=== PATIENT | male | born 1945 | race Caucasian/White ===

== ENCOUNTER 2020-07-09 19:44 | Emergency (ER) | payer OTHER ==
[~2020-07-09] VITALS: Ht 162.6 cm; Wt 79.4 kg
--- NOTE | 2020-07-09 19:48 | NUR ---
Placed in room 08 . Placed on journeyman mechanic, blood pressure machine and pulse oximeter. To gown for exam. Side rails up.
[2020-07-09 19:49] VITALS: BP_SYST 103
--- NOTE | 2020-07-09 20:00 | NUR ---
PT PRESENTS WITH BLS AMBULANCE FOR LOW BP AND FALLING TWICE AT HOME. PT DENIES KO. PER PT'S BP WAS 78/50 AND TOOK BP MEDICATION AT 1630. PT ADMITS TO HAVING 4 ALCOHOLIC BEVERAGES THIS EVENING. HX OF PARKINSONS, HTN, HLD, HEART DISEASE. AAOX4, V/S STABLE
[2020-07-09 20:36] LABS: BASOPHILS # (AUTO) 0.1 K/uL (0.0-0.2); BASOPHILS % (AUTO) 0.9 % (0.0-2.0); EOSINOPHILS # (AUTO) 0.2 K/uL (0.0-0.4); EOSINOPHILS % (AUTO) 2.5 % (0.0-4.0); HEMATOCRIT 34.2 % (36-54); HEMOGLOBIN 11.4 g/dL (14.0-18.0); LYMPHOCYTES # (AUTO) 1.6 K/uL (1.0-5.5); LYMPHOCYTES % (AUTO) 23.5 % (20.5-51.5); MEAN CORPUSCULAR HEMOGLOBIN 32 pg (27-31); MEAN CORPUSCULAR HGB CONC 33 % (32-36); MEAN CORPUSCULAR VOLUME 95 fL (79.0-98.0); MONOCYTES # (AUTO) 0.6 K/uL (0.0-1.0); MONOCYTES % (AUTO) 8.5 % (1.7-9.3); NEUTROPHILS # (AUTO) 4.4 K/uL (1.8-7.7); NEUTROPHILS % (AUTO) 64.6 % (40.0-70.0); PLATELET COUNT (AUTO) 120 K/uL (130-430); RED CELL DISTRIBUTION WIDTH 14.3 % (9.0-15.0); WHITE BLOOD COUNT (AUTO) 6.8 K/uL (4.8-10.8)
[2020-07-09] MEDS ORDERED: ATOR-1 PO (20:37)
[2020-07-09] MEDS ORDERED: CARB1TAB21 PO (20:37)
[2020-07-09] MEDS ORDERED: IRBE300T40 PO (20:37)
[2020-07-09] MEDS ORDERED: HYG25 PO (20:37)
[2020-07-09] MEDS ORDERED: COR25 PO (20:37)
[2020-07-09 20:40] LABS: ANION GAP 9 (5-15); CALCIUM 8.2 mg/dL (8.4-11.0); CHLORIDE 93 mmol/L (98-107); CREATININE 0.95 mg/dL (0.55-1.30); GLUCOSE 135 mg/dL (70-99); SODIUM SERUM 129 mmol/L (136-145); UREA NITROGEN, BLOOD 18 mg/dL (8-21)
--- NOTE | 2020-07-09 20:48 | NUR ---
Critical Result NA 129, Potassium 2.8. Dr. Acevedo notified
[2020-07-09 20:49] LABS: POTASSIUM 2.8 mmol/L (3.5-5.1)
[2020-07-09 20:51] LABS: ALANINE AMINOTRANSFERASE 10 U/L (12-78); ALBUMIN 3.2 g/dL (3.4-4.8); ASPARTATE AMINOTRANSFERASE 31 U/L (10-37); TOTAL BILIRUBIN 0.6 mg/dL (0.0-1.0)
[2020-07-09 20:52] LABS: ALCOHOL, BLOOD 206 mg/dL (<10)
[2020-07-09] MEDS ORDERED: NACL 0.9% 500 ML IV ONE (21:00)
--- NOTE | 2020-07-09 21:01 | NUR ---
ER at bedside examining patient.
[2020-07-09 21:11] LABS: INR 1.1 (0.80-1.20); PROTHROMBIN TIME 10.9 SECS (9.5-12.5)
[2020-07-09] MEDS ORDERED: NACL 0.9% 1,000 ML IV ONE (21:15)
[2020-07-09] MEDS ORDERED: POTASSIUM CHLORIDE 20 MEQ/PKT PACKET PO ONE (21:45)
[2020-07-09 22:11] LABS: BILIRUBIN,URINE NEGATIVE (NEGATIVE); BLOOD, URINE NEGATIVE (NEGATIVE); CLARITY/URINE CLEAR (CLEAR); COLOR,URINE YELLOW (YELLOW); GLUCOSE,URINE NEGATIVE (NEGATIVE); KETONES,URINE TRACE (NEGATIVE); LEUKOCYTE ESTERASE ,URINE NEGATIVE (NEGATIVE); NITRITE, URINE NEGATIVE (NEGATIVE); PH,URINE 5.5 (5.0-8.0); PROTEIN URINE NEGATIVE (NEGATIVE)
--- NOTE | 2020-07-09 22:14 | NUR ---
PT GIVEN PO POTASSIUM DRINK, TOLERATED WELL
[2020-07-09 22:57] VITALS: BP_SYST 112
--- NOTE | 2020-07-09 22:58 | NUR ---
Patient does not wish to proceed with medical care recommended by Dr Acevedo . Patient given information related to possible complications, up to and including , which could occur as a result of leaving hospital at this time. Patient verbalizes understanding of risks involved leaving against medical advice. Patient has signed AMA form.
== END 2020-07-09 22:57 | disposition left against medical advice (07) ==
LOC: SED 19:44
DX: I95.9 Hypotension, unspecified (principal); E87.1 Hypo-osmolality and hyponatremia; E87.6 Hypokalemia; F10.129 Alcohol abuse with intoxication, unspecified; E11.9 Type 2 diabetes mellitus without complications; Z86.73 Personal history of transient ischemic attack (TIA), and cerebral infarction without residual deficits; Z79.899 Other long term (current) drug therapy
CPT/HCPCS: 36415; 71045; 80053; 81003; 83605; 84484; 85025; 85379; 85610; 93005; 96360; 99291; G0482; J7030

== ENCOUNTER 2021-05-26 18:53 | Observation (INO) | payer OTHER, SELFPAY ==
[~2021-05-26] VITALS: Ht 172.7 cm; Wt 78.9 kg
[~2021-05-26 18:53] MED LIST: ATOR-1 PO; CARB1TAB21 PO; COR25 PO; HYG25 PO; IRBE300T40 PO
[2021-05-26 19:10] VITALS: BP_SYST 116
[2021-05-26 19:57] LABS: BASOPHILS # (AUTO) 0.1 K/uL (0.0-0.2); BASOPHILS % (AUTO) 0.6 % (0.0-2.0); EOSINOPHILS # (AUTO) 0.1 K/uL (0.0-0.4); EOSINOPHILS % (AUTO) 1.5 % (0.0-4.0); HEMATOCRIT 31.3 % (36-54); HEMOGLOBIN 10.6 g/dL (14.0-18.0); LYMPHOCYTES # (AUTO) 1.3 K/uL (1.0-5.5); MEAN CORPUSCULAR HEMOGLOBIN 31 pg (27-31); MEAN CORPUSCULAR HGB CONC 34 % (32-36); MEAN CORPUSCULAR VOLUME 93 fL (79.0-98.0); MONOCYTES # (AUTO) 0.6 K/uL (0.0-1.0); MONOCYTES % (AUTO) 7.8 % (1.7-9.3); NEUTROPHILS % (AUTO) 74.1 % (40.0-70.0); PLATELET COUNT (AUTO) 180 K/uL (130-430); RED BLOOD CELL COUNT(AUTO) 3.37 MIL/uL (4.2-6.2); RED CELL DISTRIBUTION WIDTH 14.8 % (9.0-15.0); WHITE BLOOD COUNT (AUTO) 8.1 K/uL (4.8-10.8)
[2021-05-26 20:26] LABS: ANION GAP 10 (5-15); CALCIUM 8.9 mg/dL (8.4-11.0); CHLORIDE 88 mmol/L (98-107); CREATININE 1.06 mg/dL (0.55-1.30); GLUCOSE 108 mg/dL (70-99); SODIUM SERUM 124 mmol/L (136-145); UREA NITROGEN, BLOOD 16 mg/dL (8-21)
[2021-05-26 20:31] LABS: ALANINE AMINOTRANSFERASE 10 U/L (12-78); ALBUMIN 3.3 g/dL (3.4-4.8); ASPARTATE AMINOTRANSFERASE 25 U/L (10-37); TOTAL BILIRUBIN 1.1 mg/dL (0.0-1.0)
[2021-05-26 20:33] LABS: POTASSIUM 2.7 mmol/L (3.5-5.1)
[2021-05-26] MEDS ORDERED: KCL 20 mEq in 100 mL (PREMIX) 100 ML IV ONE (20:45)
[2021-05-26] MEDS ORDERED: POTASSIUM CHLORIDE 20 MEQ TAB.PRT.SR PO ONE (20:45)
[2021-05-26 21:27] LABS: BILIRUBIN,URINE NEGATIVE (NEGATIVE); BLOOD, URINE NEGATIVE (NEGATIVE); CLARITY/URINE CLEAR (CLEAR); COLOR,URINE YELLOW (YELLOW); GLUCOSE,URINE NEGATIVE (NEGATIVE); KETONES,URINE NEGATIVE (NEGATIVE); LEUKOCYTE ESTERASE ,URINE NEGATIVE (NEGATIVE); NITRITE, URINE NEGATIVE (NEGATIVE); PROTEIN URINE NEGATIVE (NEGATIVE)
[2021-05-26] MEDS ORDERED: IOHEXOL 350 mgI/mL, 150 ML INFUS..BTL IV ONE (21:27)
[2021-05-26] MEDS ORDERED: HYDR-3610 PO (21:53)
[2021-05-26] MEDS ORDERED: HYG25 PO (21:53)
[2021-05-26] MEDS ORDERED: SACU1TAB7 PO (21:53)
[2021-05-26] MEDS ORDERED: NACL 0.9% 1,000 ML IV ONE (22:30)
[2021-05-26 23:04] LABS: INR 1.1 (0.80-1.20); PROTHROMBIN TIME 11.6 SECS (9.5-12.5)
[2021-05-27] VITALS (7 sets, daily range): BP systolic 88–134
[2021-05-27] MEDS ORDERED: HYDROcodone/ACETAMIN 5-325 MG TAB (NORCO/ VICODIN) PO PRN
[2021-05-27] MEDS ORDERED: MORPHINE 4 MG INJ. 4 MG/ML VIAL IVP PRN
[2021-05-27] MEDS ORDERED: NALOXONE HCL 0.4 MG/ML AMP (NARCAN) IVP PRN
[2021-05-27] MEDS ORDERED: ACETAMINOPHEN 325 MG TABLET PO PRN
[2021-05-27] MEDS ORDERED: ALBUTEROL SULFATE 0.083% 2.5 MG/3 ML VIAL.NEB INH PRN
[2021-05-27 07:01] LABS: BASOPHILS # (AUTO) 0.1 K/uL (0.0-0.2); BASOPHILS % (AUTO) 0.7 % (0.0-2.0); EOSINOPHILS # (AUTO) 0.1 K/uL (0.0-0.4); EOSINOPHILS % (AUTO) 1.4 % (0.0-4.0); HEMATOCRIT 30.2 % (36-54); HEMOGLOBIN 10.5 g/dL (14.0-18.0); LYMPHOCYTES # (AUTO) 1.1 K/uL (1.0-5.5); LYMPHOCYTES % (AUTO) 14.2 % (20.5-51.5); MEAN CORPUSCULAR HEMOGLOBIN 32 pg (27-31); MEAN CORPUSCULAR HGB CONC 35 % (32-36); MEAN CORPUSCULAR VOLUME 92 fL (79.0-98.0); MONOCYTES # (AUTO) 0.7 K/uL (0.0-1.0); MONOCYTES % (AUTO) 9.7 % (1.7-9.3); NEUTROPHILS # (AUTO) 5.5 K/uL (1.8-7.7); PLATELET COUNT (AUTO) 172 K/uL (130-430); RED BLOOD CELL COUNT(AUTO) 3.27 MIL/uL (4.2-6.2); RED CELL DISTRIBUTION WIDTH 14.7 % (9.0-15.0); WHITE BLOOD COUNT (AUTO) 7.4 K/uL (4.8-10.8)
[2021-05-27] MEDS ORDERED: CARBIDOPA/LEVODOPA 25/100 MG TABLET PO SCH ×3 (09:00→15:00)
[2021-05-27 09:03] LABS: CHLORIDE 91 mmol/L (98-107); POTASSIUM 3.3 mmol/L (3.5-5.1); SODIUM SERUM 127 mmol/L (136-145)
[2021-05-27 09:04] LABS: ALANINE AMINOTRANSFERASE 9 U/L (12-78); ANION GAP 9 (5-15); ASPARTATE AMINOTRANSFERASE 21 U/L (10-37); CALCIUM 8.4 mg/dL (8.4-11.0); CREATININE 0.88 mg/dL (0.55-1.30); GLUCOSE 103 mg/dL (70-99); TOTAL BILIRUBIN 1.4 mg/dL (0.0-1.0); UREA NITROGEN, BLOOD 16 mg/dL (8-21)
[2021-05-27] MEDS ORDERED: POTASSIUM CHLORIDE 20 MEQ TAB.PRT.SR PO ONE (09:15)
[2021-05-27] MEDS ORDERED: CARVEDILOL 25 MG TABLET (COREG) ONE (10:41)
[2021-05-27] MEDS ORDERED: CARBIDOPA/LEVODOPA 25/100 MG TABLET PO ONE (11:30)
[2021-05-27] MEDS ORDERED: HYDROcodone/ACETAMIN 7.5-325 MG TAB PO PRN (15:15)
[2021-05-27] MEDS ORDERED: CARVEDILOL 25 MG TABLET (COREG) PO SCH (18:00)
[2021-05-27] MEDS ORDERED: SACUBITRIL/VALSARTAN 24 MG-26 MG 1 TABLET PO SCH (21:00)
== END 2021-05-27 19:50 | disposition home or self-care (01) ==
LOC: SED 18:53 → INTOOBSV 22:23 → STU 22:23
PROVIDERS: ADMIT Internal Medicine Hospice and Palliative Medicine; ATTEND Internal Medicine Hospice and Palliative Medicine
DX: R55 Syncope and collapse (principal); Z20.822 Contact with and (suspected) exposure to COVID-19; E87.6 Hypokalemia; E87.1 Hypo-osmolality and hyponatremia; D64.9 Anemia, unspecified; E46 Unspecified protein-calorie malnutrition; E88.09 Other disorders of plasma-protein metabolism, not elsewhere classified; I25.10 Atherosclerotic heart disease of native coronary artery without angina pectoris; I48.91 Unspecified atrial fibrillation; I11.0 Hypertensive heart disease with heart failure; I50.9 Heart failure, unspecified; E11.9 Type 2 diabetes mellitus without complications; G20 Parkinson's disease; F02.80 Dementia in other diseases classified elsewhere, unspecified severity, without behavioral disturbance, psychotic disturbance, mood disturbance, and anxiety; T50.2X5A Adverse effect of carbonic-anhydrase inhibitors, benzothiadiazides and other diuretics, initial encounter; Z95.1 Presence of aortocoronary bypass graft; Z79.899 Other long term (current) drug therapy; Z87.891 Personal history of nicotine dependence
CPT/HCPCS: 36415 ×2; 70450; 71045; 71275; 76376; 80053 ×2; 81003; 82962; 83735; 83880; 84484 ×2; 85025 ×2; 85379; 85610; 87426; 93005; 93306; 96365; 96366; 99285; G0378; J3480; Q9967

== ENCOUNTER 2022-02-14 09:40 | Inpatient (IN) | payer OTHER ==
[~2022-02-14] VITALS: Ht 172.7 cm; Wt 77.1 kg
[~2022-02-14 09:40] MED LIST changes: -ATOR-1 PO
[2022-02-14 09:44] VITALS: BP_SYST 128
--- NOTE | 2022-02-14 09:44 | NUR ---
Patient to ER bed 2 for evaluation. Side rails up. Report given to Jeramie CHOWDHURY.
--- NOTE | 2022-02-14 10:32 | NUR ---
In ER bed 2 States that he has been falling alot at home Denies Trauma
[2022-02-14 10:44] LABS: BASOPHILS % (AUTO) 0.2 % (0.0-2.0); EOSINOPHILS % (AUTO) 0.2 % (0.0-4.0); HEMATOCRIT 25.8 % (36-54); HEMOGLOBIN 9.2 g/dL (14.0-18.0); LYMPHOCYTES # (AUTO) 0.4 K/uL (1.0-5.5); MEAN CORPUSCULAR HEMOGLOBIN 31 pg (27-31); MEAN CORPUSCULAR HGB CONC 36 % (32-36); MEAN CORPUSCULAR VOLUME 87 fL (79.0-98.0); MONOCYTES # (AUTO) 0.6 K/uL (0.0-1.0); MONOCYTES % (AUTO) 10.3 % (1.7-9.3); NEUTROPHILS # (AUTO) 5.1 K/uL (1.8-7.7); NEUTROPHILS % (AUTO) 83.3 % (40.0-70.0); PLATELET COUNT (AUTO) 124 K/uL (130-430); RED BLOOD CELL COUNT(AUTO) 2.96 MIL/uL (4.2-6.2); RED CELL DISTRIBUTION WIDTH 14.8 % (9.0-15.0); WHITE BLOOD COUNT (AUTO) 6.2 K/uL (4.8-10.8)
[2022-02-14 11:01] LABS: ANION GAP 9 (5-15); CALCIUM 8.4 mg/dL (8.4-11.0); CREATININE 0.92 mg/dL (0.55-1.30); GLUCOSE 106 mg/dL (70-99); UREA NITROGEN, BLOOD 21 mg/dL (8-21)
[2022-02-14 11:09] LABS: ALBUMIN 3.5 g/dL (3.4-4.8); ASPARTATE AMINOTRANSFERASE 31 U/L (10-37); TOTAL BILIRUBIN 2.7 mg/dL (0.0-1.0)
[2022-02-14 11:12] LABS: POTASSIUM 2.5 mmol/L (3.5-5.1); SODIUM SERUM 114 mmol/L (136-145)
[2022-02-14 11:13] LABS: CHLORIDE 76 mmol/L (98-107)
[2022-02-14] MEDS ORDERED: NACL 0.9% 1,000 ML IV ONE (11:30)
[2022-02-14] MEDS ORDERED: KCL 40 mEq in 100 mL (PREMIX) 100 ML IV ONE (11:30)
[2022-02-14] MEDS ORDERED: POTASSIUM CHLORIDE 20 MEQ TAB.PRT.SR PO ONE (11:30)
[2022-02-14 11:38] LABS: ALANINE AMINOTRANSFERASE 12 U/L (12-78)
[2022-02-14] MEDS: POTASSIUM CHLORIDE 20 mEq in 100 mL (PREMIX) 100 ML x 2 doses IV SCH ×2 (11:41→13:45)
[2022-02-14] MEDS ORDERED: TAMS-11 PO (12:05)
[2022-02-14] MEDS ORDERED: LIP80 PO (12:17)
--- NOTE | 2022-02-14 12:53 | NUR ---
Stable. Admitted. All results reviewed by MD. Has spoken to primary. Awaiting bed on floor.
[2022-02-14 13:23] LABS: ALCOHOL, BLOOD < 3 mg/dL (<10)
[2022-02-14] MEDS ORDERED: D5NS 1,000 ML IV SCH ×2 (13:45→17:45)
[2022-02-14] MEDS ORDERED: ACETAMINOPHEN 325 MG TABLET PO PRN ×2 (13:45→14:00)
[2022-02-14] MEDS ORDERED: HYDROcodone/ACETAMIN 5-325 MG TAB (NORCO/ VICODIN) PO PRN (13:45)
[2022-02-14] MEDS ORDERED: HYDROcodone/ACETAMIN 10-325 MG TAB PO PRN (13:45)
[2022-02-14] MEDS ORDERED: NALOXONE HCL 0.4 MG/ML AMP (NARCAN) IVP PRN ×2 (13:45)
[2022-02-14] MEDS ORDERED: ONDANSETRON HCL 4 MG/2 ML VIAL IVP PRN (13:45)
[2022-02-14] MEDS ORDERED: LORazepam 2 MG/ML VIAL IVP PRN (13:45)
[2022-02-14] MEDS ORDERED: ATORVASTATIN 20 MG TABLET PO ONE (14:00)
[2022-02-14 14:16] LABS: BILIRUBIN,URINE NEGATIVE (NEGATIVE); BLOOD, URINE NEGATIVE (NEGATIVE); CLARITY/URINE CLEAR (CLEAR); COLOR,URINE YELLOW (YELLOW); GLUCOSE,URINE TRACE (NEGATIVE); KETONES,URINE NEGATIVE (NEGATIVE); LEUKOCYTE ESTERASE ,URINE NEGATIVE (NEGATIVE); NITRITE, URINE NEGATIVE (NEGATIVE); PROTEIN URINE NEGATIVE (NEGATIVE)
[2022-02-14] MEDS ORDERED: CHLORTHALIDONE 25 MG TABLET (HYGROTON) PO ONE (15:00)
[2022-02-14] MEDS ORDERED: LOSARTAN POTASSIUM 50 MG TABLET (COZAAR) PO ONE (15:00)
[2022-02-14] MEDS: CARBIDOPA/LEVODOPA 25/100 MG TABLET PO SCH ×2 (15:00→23:54)
[2022-02-14 16:00] LABS: ANION GAP 6 (5-15); CALCIUM 7.6 mg/dL (8.4-11.0); CREATININE 0.74 mg/dL (0.55-1.30); GLUCOSE 92 mg/dL (70-99); POTASSIUM 3.3 mmol/L (3.5-5.1); UREA NITROGEN, BLOOD 19 mg/dL (8-21)
[2022-02-14 16:20] LABS: CHLORIDE 80 mmol/L (98-107); SODIUM SERUM 113 mmol/L (136-145)
[2022-02-14 17:20] VITALS: BP_SYST 133
--- NOTE | 2022-02-14 17:20 | NUR ---
ADMISSION NOTE Received patient from ER via gurney from Luciano CHOWDHURY. Patient admitted with diagnosis of syncope/a-fib. Patient is awake, alert, oriented X 4. Patient oriented to hospital room, call light, toileting, pain management and safety-teach back done. Personal belongings checked and Belongings List documented. Call light within reach.
--- NOTE | 2022-02-14 17:25 | NUR ---
Stable. VSS. Repeat lab results reported to Primary. Orders taken Has been admitted. Report to floor. Ambulated to . Placed in bed. Nurse aware.
--- NOTE | 2022-02-14 17:32 | NUR ---
CONSULTATION PAGED REASON FOR CONSULTATION:SYNCOPE/ AFIB WAS CONSULT [place] PERSON WHO WAS NOTIFIED:NATHALIE CONSULTING PHYSICIAN: AUTOMOTIVE SALES PROFESSIONAL SPECIALTY:CARDIO AUTOMOTIVE SALES PROFESSIONAL PHONE NUMBER:[phone] REQUESTING PHYSICIAN:JOSIAH MARX
[2022-02-14] MEDS: CARVEDILOL 25 MG TABLET (COREG) PO SCH (17:52)
[2022-02-14] MEDS: TAMSULOSIN HCL 0.4 MG CAP PO SCH (17:52)
--- NOTE | 2022-02-14 19:18 | NUR ---
Closing Note Patient is laying in bed with eyes closed. No apparent distress noted. Patient appears calm and resting. Call light within reach. Safety and fall precautions in place. All needs met. Will endorse care to retail shift leader RN.
[2022-02-14 20:00] VITALS: BP_SYST 156
--- NOTE | 2022-02-14 20:03 | NUR ---
PM OPENING NURSES NOTING HAND-OFF REPORT RECEIVED FROM AXEL/AND ACCOMPANYING NURSE. REPORTED: RECEIVED FROM HOME WITH C/O DIZZINESS AND FALL WITH DX OF AFIB/SYNCOPE. POOF HISTORIAN WITH HX OF HTN, CHF, BPH, AFIB, PARKINSON. PT STATED I WANT "FULL CODE". NKDA. STANDARD PRECAUTIONS. A/OX4 GREENLANDIC SPEAKING. ON BEDREST. ROOM AIR SAT 94% 2 GM NA DIET. LT AC 20 GAD5 NS @100 ML/H. LAST STOOL 02/14/22. SKIN WITH L/R BUTTOCK MOISTURE ASSOCIATED SKIN DENUDED. LEFT LEG EDEMA NON PITTING.PRESENT K @ 3.3 40 IV AND 40 P.O K GIVEN IN ER. VENOUS DOPPLER R/O DVT NEGATIVE. CT HEAD NO ACUTE CHANGES, CXR NO CHANGES IN CARDIOMEGALY. ON TELE PRESENTLY HR 76WITH PVC AND BBB. PT RESTING WITH EYES CLOSED. EVEN NON-LABORED BREATHING AUDIBLE. ALLOW TO REST. REPORTED A BIT IRRITATED AFTER ANSWERING THE MANY ADMISSION QUESTIONS. MONITOR AND ASSIST WITH MEDS ORDERED AND COMFORT MEASURES. BED IN LOWEST POSITION AND CALL LIGHT WITHIN EASY REACH. BED ALARM ON.
[2022-02-14 20:40] LABS: CALCIUM 7.9 mg/dL (8.4-11.0); CREATININE 0.69 mg/dL (0.55-1.30); GLUCOSE 139 mg/dL (70-99); POTASSIUM 3.1 mmol/L (3.5-5.1); UREA NITROGEN, BLOOD 19 mg/dL (8-21)
--- NOTE | 2022-02-14 20:48 | NUR ---
DOCTOR GUY PHONED FOR LATEST SODIUM RESULTS WHICH ARE STILL PENDING. WILL RETURN CALL WHEN RESULTS READY. .
[2022-02-14 20:51] LABS: ANION GAP 9 (5-15)
[2022-02-14 20:57] LABS: CHLORIDE 77 mmol/L (98-107); SODIUM SERUM 113 mmol/L (136-145)
--- NOTE | 2022-02-14 21:05 | NUR ---
CRITICAL LAB RESULTS PHONED TO [facility] NA 113 CL 77. NEW ORDERS OBTAINED. SERUM OSMOLARITY, URINE OSMOLARITY, TSH, CORTISOL IN A.M. 0000 CHEMISTRY CALL RESULTS TO [facility]. D/C CURRENT IV FLUIDS. 3% NS AT 10 MLS/H.
--- NOTE | 2022-02-14 21:30 | NUR ---
PT UNABLE TO GIVEN URINE SAMPLE AT THIS TIME.
[2022-02-14] MEDS ORDERED: SODIUM CHLORIDE 3% *HI-ALERT* 500 ML IV ONE (23:14)
--- NOTE | 2022-02-14 23:16 | NUR ---
HIGH ALERT NOTE: Called Dr. SOLIMAN back at [phone] identified within the medical roster to verify physician authenticity. CALLED BACK TO VERIFY HIGH ALERT MED
[2022-02-14] MEDS: SODIUM CHLORIDE 3% *HI-ALERT* 500 ML IV SCH (23:59)
[2022-02-15 00:12] VITALS: BP_SYST 154
[2022-02-15 01:01] LABS: ALANINE AMINOTRANSFERASE 10 U/L (12-78); ANION GAP 7 (5-15); ASPARTATE AMINOTRANSFERASE 27 U/L (10-37); CALCIUM 7.5 mg/dL (8.4-11.0); CREATININE 0.77 mg/dL (0.55-1.30); GLUCOSE 132 mg/dL (70-99); TOTAL BILIRUBIN 2.4 mg/dL (0.0-1.0); UREA NITROGEN, BLOOD 18 mg/dL (8-21)
[2022-02-15 01:12] LABS: SODIUM SERUM 115 mmol/L (136-145)
--- NOTE | 2022-02-15 01:12 | NUR ---
CRITICAL LAB QF=828 K=2.8 PER DEEDEE IN LAB.
[2022-02-15 01:14] LABS: POTASSIUM 2.8 mmol/L (3.5-5.1)
[2022-02-15 01:15] LABS: CHLORIDE 81 mmol/L (98-107)
--- NOTE | 2022-02-15 01:34 | NUR ---
CRITICAL LABS REPORTED TO JOURDAN FISHER. NEW ORDER OBTAINED FOR POTASSIUM CHLORIDE 40 MG PO
[2022-02-15] MEDS ORDERED: POTASSIUM CHLORIDE 20 MEQ TAB.PRT.SR PO ONE ×3 (02:30→20:00)
--- NOTE | 2022-02-15 02:30 | NUR ---
K DUR 40 PO GIVEN WITH APPLE SAUCE. TOL. WEINSTEIN.
--- NOTE | 2022-02-15 04:00 | NUR ---
URINE OSMOLARITY SPECIMEN OBTAINED AND SENT TO LAB. RESULTS PRESENTLY PENDING.
--- NOTE | 2022-02-15 06:25 | NUR ---
SENT A MESSAGE TO DR. MELLISA Carrero FOR CONSULTATION; HE REPLIED AND TOLD ME TO SEND IT TO DR. AGRCIA SO I DID SENT A MESSAGE TO DR. GARCIA PER DR. PAK
[2022-02-15 06:34] LABS: BASOPHILS % (AUTO) 0.2 % (0.0-2.0); EOSINOPHILS % (AUTO) 0.2 % (0.0-4.0); HEMATOCRIT 25.8 % (36-54); LYMPHOCYTES # (AUTO) 0.4 K/uL (1.0-5.5); LYMPHOCYTES % (AUTO) 4.6 % (20.5-51.5); MEAN CORPUSCULAR HEMOGLOBIN 31 pg (27-31); MEAN CORPUSCULAR HGB CONC 35 % (32-36); MEAN CORPUSCULAR VOLUME 88 fL (79.0-98.0); MONOCYTES # (AUTO) 0.8 K/uL (0.0-1.0); MONOCYTES % (AUTO) 11.1 % (1.7-9.3); NEUTROPHILS # (AUTO) 6.4 K/uL (1.8-7.7); NEUTROPHILS % (AUTO) 83.9 % (40.0-70.0); PLATELET COUNT (AUTO) 125 K/uL (130-430); RED BLOOD CELL COUNT(AUTO) 2.93 MIL/uL (4.2-6.2); RED CELL DISTRIBUTION WIDTH 14.3 % (9.0-15.0); WHITE BLOOD COUNT (AUTO) 7.6 K/uL (4.8-10.8)
[2022-02-15 06:42] LABS: ANION GAP 5 (5-15); CALCIUM 7.6 mg/dL (8.4-11.0); CREATININE 0.74 mg/dL (0.55-1.30); GLUCOSE 120 mg/dL (70-99); POTASSIUM 3.2 mmol/L (3.5-5.1); UREA NITROGEN, BLOOD 17 mg/dL (8-21)
[2022-02-15 06:56] LABS: ALANINE AMINOTRANSFERASE 9 U/L (12-78); ALBUMIN 3.2 g/dL (3.4-4.8); ASPARTATE AMINOTRANSFERASE 27 U/L (10-37); PHOSPHORUS 2.7 mg/dL (2.7-4.5); THYROID STIMULATING HORMONE 0.91 uIu/mL (0.36-3.74); TOTAL BILIRUBIN 2.1 mg/dL (0.0-1.0)
--- NOTE | 2022-02-15 07:30 | NUR ---
PM CLOSING NURSING NOTES HAND-OFF REPORT TO AXEL CHOWDHURY. ALL CRITICAL LABS REVIEWED WITH RESULTING NEW ORDERS OBTAINED FROM DR. JOURDAN SUH. URINE OSMOLARITY PENDING. PT AWAKE IN BED WATCHING TV. DENIES PAIN. RELINQUISHED CARE OF PT AT THIS TIME.
[2022-02-15 07:45] LABS: CHLORIDE 81 mmol/L (98-107); SODIUM SERUM 116 mmol/L (136-145)
[2022-02-15 08:07] VITALS: BP_SYST 146
--- NOTE | 2022-02-15 08:08 | NUR ---
Opening Notes Patient is laying in bed with eyes closed. A/O x4. No apparent distress noted. Patient denies pain. Vitals as charted. Call light within reach. Safety and fall precautions in place. All need met.
--- NOTE | 2022-02-15 08:25 | NUR ---
Note Assisted patient to bedside commode. Provided help with hygiene needs and changed linen/gown. Call light within reach. Safety and fall precautions in place. All needs met.
[2022-02-15] MEDS: CARBIDOPA/LEVODOPA 25/100 MG TABLET PO SCH ×3 (08:52→22:42)
[2022-02-15] MEDS: ATORVASTATIN 20 MG TABLET PO SCH (08:53)
[2022-02-15] MEDS: CARVEDILOL 25 MG TABLET (COREG) PO SCH ×2 (08:54→18:21)
[2022-02-15] MEDS: LOSARTAN POTASSIUM 50 MG TABLET (COZAAR) PO SCH (08:54)
--- NOTE | 2022-02-15 08:55 | NUR ---
Note Dr. Pennington at bedside. Speaking to patient and . No new orders given at this time.
[2022-02-15] MEDS ORDERED: CHLORTHALIDONE 25 MG TABLET (HYGROTON) PO SCH (09:00)
[2022-02-15 11:57] VITALS: BP_SYST 140
[2022-02-15 13:47] LABS: ANION GAP 5 (5-15); CALCIUM 7.8 mg/dL (8.4-11.0); CHLORIDE 83 mmol/L (98-107); CREATININE 0.69 mg/dL (0.55-1.30); GLUCOSE 116 mg/dL (70-99); UREA NITROGEN, BLOOD 14 mg/dL (8-21)
--- NOTE | 2022-02-15 13:53 | NUR ---
Critical Lab Received a call from Christine Sierra regarding critical labs of sodium 117 and potassium 2.9.
[2022-02-15 13:54] LABS: POTASSIUM 2.9 mmol/L (3.5-5.1); SODIUM SERUM 117 mmol/L (136-145)
--- NOTE | 2022-02-15 14:06 | NUR ---
Paged Dr. Flores Paged Dr. Flores regarding critical labs. Dr. Flores ordered 40mEq potassium PO x 2, 1 now and second 40mEq PO K+ at 1999. Dr. Flores ordered a new chemistry panel at 1900 and is requesting shiftman call her back with those results.
[2022-02-15 16:14] VITALS: BP_SYST 136
[2022-02-15] MEDS: TAMSULOSIN HCL 0.4 MG CAP PO SCH (18:20)
--- NOTE | 2022-02-15 18:40 | NUR ---
Closing Notes Patient is laying in bed watching television. No apparent distress noted. Call light within reach. Safety and fall precautions in place. All need met. Reminded patient to use call light for assistance. Will endorse care to night time nanny RN.
[2022-02-15 19:37] LABS: ALBUMIN 2.9 g/dL (3.4-4.8); ANION GAP 5 (5-15); ASPARTATE AMINOTRANSFERASE 22 U/L (10-37); CALCIUM 7.9 mg/dL (8.4-11.0); GLUCOSE 128 mg/dL (70-99); TOTAL BILIRUBIN 2.1 mg/dL (0.0-1.0); UREA NITROGEN, BLOOD 17 mg/dL (8-21)
[2022-02-15 19:39] LABS: SODIUM SERUM 118 mmol/L (136-145)
[2022-02-15 19:40] LABS: CHLORIDE 84 mmol/L (98-107)
[2022-02-15 19:55] LABS: ALANINE AMINOTRANSFERASE 4 U/L (12-78)
--- NOTE | 2022-02-15 20:11 | NUR ---
CRITICAL LABS RECEIVED AT 1940 ([facility]) SODIUM [address] SOLIMAN CONTACTED AT 2000. NEW ORDERS RECEIVED. CONTINUE 3% NS @ 10 ML/H. DISCONTINUE 3% NS @ 0500. ALSO ORDER GIVEN FOR 02 2L/NC CONTINUOUS. (REASON PT DESATS OCCASIONALLY AND DEVELOPS SLIGHT WHEEZE). THIS NURSE VERIFIED WITH JOURDAN THAT NO IV FLUIDS WILL BE REPLACING 3% NS ONCE DISCONTINUED AT 0500. VERIFIED THIS. PT ABLE TO EAT AND SWALLOW WITHOUT DIFFICULTY.
[2022-02-15] MEDS: SODIUM CHLORIDE 3% *HI-ALERT* 500 ML IV SCH (21:45)
[2022-02-16 00:39] VITALS: BP_SYST 154
[2022-02-16 06:40] LABS: BASOPHILS % (AUTO) 0.3 % (0.0-2.0); EOSINOPHILS % (AUTO) 0.2 % (0.0-4.0); HEMATOCRIT 25.9 % (36-54); HEMOGLOBIN 9.2 g/dL (14.0-18.0); LYMPHOCYTES # (AUTO) 0.4 K/uL (1.0-5.5); MEAN CORPUSCULAR HEMOGLOBIN 31 pg (27-31); MEAN CORPUSCULAR HGB CONC 35 % (32-36); MEAN CORPUSCULAR VOLUME 87 fL (79.0-98.0); MONOCYTES # (AUTO) 0.9 K/uL (0.0-1.0); MONOCYTES % (AUTO) 11.3 % (1.7-9.3); NEUTROPHILS # (AUTO) 6.3 K/uL (1.8-7.7); NEUTROPHILS % (AUTO) 83.2 % (40.0-70.0); PLATELET COUNT (AUTO) 133 K/uL (130-430); RED BLOOD CELL COUNT(AUTO) 2.97 MIL/uL (4.2-6.2); RED CELL DISTRIBUTION WIDTH 14.8 % (9.0-15.0); WHITE BLOOD COUNT (AUTO) 7.6 K/uL (4.8-10.8)
--- NOTE | 2022-02-16 07:30 | NUR ---
HAND-OFF REPORT TO ON COMING DAY SHIFT. ENDORSED IV DISLODGED FROM LEFT AC. DAY SHIFT AGREED TO RESTART WITH STUDENT. ENDORSED/REVIEWED CRITICAL LABS. SEE OPENING NOTES. UNEVENTFUL NIGHT.RELINQUISHED CARE OF PT AT THIS TIME.
[2022-02-16 07:56] LABS: ALANINE AMINOTRANSFERASE 5 U/L (12-78); ANION GAP 6 (5-15); ASPARTATE AMINOTRANSFERASE 24 U/L (10-37); CALCIUM 8.1 mg/dL (8.4-11.0); CREATININE 0.65 mg/dL (0.55-1.30); GLUCOSE 119 mg/dL (70-99); PHOSPHORUS 2.4 mg/dL (2.7-4.5); POTASSIUM 3.7 mmol/L (3.5-5.1); TOTAL BILIRUBIN 1.9 mg/dL (0.0-1.0); UREA NITROGEN, BLOOD 16 mg/dL (8-21)
[2022-02-16 08:00] VITALS: BP_SYST 159
[2022-02-16 08:03] LABS: CHLORIDE 85 mmol/L (98-107)
[2022-02-16 08:04] LABS: SODIUM SERUM 118 mmol/L (136-145)
[2022-02-16] MEDS: CARBIDOPA/LEVODOPA 25/100 MG TABLET PO SCH ×3 (09:14→22:15)
[2022-02-16] MEDS: LOSARTAN POTASSIUM 50 MG TABLET (COZAAR) PO SCH (09:15)
[2022-02-16] MEDS: CARVEDILOL 25 MG TABLET (COREG) PO SCH ×2 (09:16→17:47)
[2022-02-16] MEDS: ATORVASTATIN 20 MG TABLET PO SCH (09:16)
[2022-02-16 12:00] VITALS: BP_SYST 155
[2022-02-16] MEDS ORDERED: FUROSEMIDE 20 MG/2 ML VIAL IVP ONE (12:00)
--- NOTE | 2022-02-16 16:20 | NUR ---
Dietitian Recommendations * Continue w/ Cardiac diet * Encourage PO intake Please refer to Nutrition Assessment for details. Addendum: 02/16/22 at [address] Amended: Links added.
[2022-02-16] MEDS: TAMSULOSIN HCL 0.4 MG CAP PO SCH (17:46)
[2022-02-16 18:21] VITALS: BP_SYST 130
--- NOTE | 2022-02-16 19:30 | NUR ---
PM OPENING NOTES HAND-OFF REPORT RECEIVED FROM EVELYNE CHOWDHURY. REPORTED: NEW IV 20 GA TO RIGHT FA. SODIUM 118; LASIX IV X1 GIVEN; POTASSIUM 3.7; B/P 150's/90's DOWN TO 130's/90's WITH ROUTINE SCHEDULED MEDS' PAYROLL CLERK CONTROLLED AFIB. PT RECEIVED LYING IN BED WATCHING NEWS. DENIES PAIN. "I WANT TO GO HOME TO MY AND DOG." PT TEACHING CONCERNING SODIUM LEVEL. PT STATED UNDERSTOOD. PROVIDED BLANKET FROM OVEN. DENIED FURTHER NEEDS. BED IN LOWEST POSITION WITH WHEELS LOCKED. CALL LIGHT WITHIN EASY REACH. MONITOR AND ASSIST NEEDED.
[2022-02-16 20:00] VITALS: BP_SYST 110
--- NOTE | 2022-02-16 23:45 | NUR ---
PULLED UP TO HEAD OF BED PER COMFORT. VS TAKEN. EMPTIED URINAL. VOICED NO NEEDS. BACK TO SLEEP.
[2022-02-17 00:23] VITALS: BP_SYST 147
--- NOTE | 2022-02-17 01:03 | NUR ---
OBSERVED SLEEPING. NO DISTRESS. CONT. TO MONITOR.
[2022-02-17 08:25] LABS: CALCIUM 8.1 mg/dL (8.4-11.0); CREATININE 0.77 mg/dL (0.55-1.30); GLUCOSE 119 mg/dL (70-99); UREA NITROGEN, BLOOD 22 mg/dL (8-21)
[2022-02-17 08:31] LABS: ALANINE AMINOTRANSFERASE 6 U/L (12-78); ASPARTATE AMINOTRANSFERASE 25 U/L (10-37); TOTAL BILIRUBIN 2.3 mg/dL (0.0-1.0)
[2022-02-17 08:35] LABS: ANION GAP 9 (5-15); SODIUM SERUM 121 mmol/L (136-145)
[2022-02-17 08:39] LABS: CHLORIDE 81 mmol/L (98-107)
[2022-02-17 08:40] VITALS: BP_SYST 125
--- NOTE | 2022-02-17 08:40 | NUR ---
INITIAL ROUNDS Received pt AAOx4, no s/s resp distress, c/o productive cough with thin phlegm, no c/o pain or discomfort. Plan of care for the day reviewed with pt and pt's -both verbalized their understanding. Pain management, skin and safety discussed-teach back done. Side rails up x3, bed alarm on for safety. Call light within reach.
[2022-02-17 08:44] LABS: POTASSIUM 2.9 mmol/L (3.5-5.1)
[2022-02-17] MEDS ORDERED: POTASSIUM CHLORIDE 10 MEQ TAB.PRT.SR PO ONE (09:30)
[2022-02-17] MEDS: CARBIDOPA/LEVODOPA 25/100 MG TABLET PO SCH ×3 (09:55→21:07)
[2022-02-17] MEDS: ATORVASTATIN 20 MG TABLET PO SCH (09:56)
[2022-02-17] MEDS: CARVEDILOL 25 MG TABLET (COREG) PO SCH ×2 (09:56→18:04)
[2022-02-17] MEDS: LOSARTAN POTASSIUM 50 MG TABLET (COZAAR) PO SCH (09:56)
[2022-02-17 11:30] VITALS: BP_SYST 140
[2022-02-17] MEDS ORDERED: POTASSIUM CHLORIDE 20 MEQ TAB.PRT.SR PO ONE (13:00)
[2022-02-17 15:52] VITALS: BP_SYST 130
[2022-02-17 15:55] VITALS: BP_SYST 130
--- NOTE | 2022-02-17 15:55 | NUR ---
KEEP MCDONALD IN AT DISCHARGE Spoke with Dr. Lopez and he stated to keep the mcdonald catheter in when discharged and to follow up with pt's own urologist Dr. Villalta in 1 week. Addendum: 02/17/22 at 1728 by Natalie Cobb RN DOCUMENTED ON WRONG PATIENT.
--- NOTE | 2022-02-17 16:10 | NUR ---
WOUND CARE Coccyx area cleansed with normal saline, moisture barrier cream applied to area, covered with a foam dressing. Right coccyx wound bed 100% pink, no drainage, no odor, measures 3 cm x1 cm. Left coccyx wound bed 100% dark pink, no drainage, no odor, measures 4 cm x 3 cm. Pt repositioned with pillow support and heels off-loaded for skin care. Pt tolerated well. All precautions remain in place.
[2022-02-17] MEDS: TAMSULOSIN HCL 0.4 MG CAP PO SCH (18:04)
--- NOTE | 2022-02-17 18:42 | NUR ---
CLOSING NOTE/SUSANA REDNESS/EDEMA Pt sitting up in bed resting quietly in bed with no s/s resp distress, continues to sound congested-note pt to have breathing treatment at 1900. No c/o pain. Pt did c/o soreness to SUSANA noted area of redness and edema, ice pack placed and arm elevated for comfort. Will endorse to next shift nurse. Needs met, all precautions remain in place, call light within reach.
[2022-02-17 20:00] VITALS: BP_SYST 126
[2022-02-18] VITALS (28 sets, daily range): BP systolic 79–134
--- NOTE | 2022-02-18 04:40 | NUR ---
CALLED : SINCERE CALLED AND NOTIFIED ABOUT HEART RATE DROP AND CODE , DR BENJAMIN TALKED WITH THE TOO .
[2022-02-18] MEDS ORDERED: NACL 0.9% 1,000 ML IV ONE (04:45)
--- NOTE | 2022-02-18 04:51 | NUR ---
DR BENJAMIN LEAD THE CODE AFTER INTUBATION ORDERED CBC, CMP, EKG, TROPONIN , ABG, BLOOD CULTURE, LACTIC ACID; 1 L NS BOLUS, CXR , PROPOFOL DRIP FOR ICU , TRANSFER TO ICU . Addendum: 02/18/22 at 0455 by Meghann Hyman RN MCDONALD CATHETER
--- NOTE | 2022-02-18 05:04 | NUR ---
CALLED AND NOTIFIED DR BAÑUELOS WHO IS ONCALL FOR DR GRANADOS THAT PT CODED , INTUBATED AND TRANSFERRED TO ICU .
--- NOTE | 2022-02-18 05:10 | NUR ---
0430 - 0445 : aviation maintenance technician called and stated that Pt heart rate on tele monitor was 30 beats per minute at approximately 0430 and pt was found unresponsive, not breathing and no pulse. [facility] was called immediately and compressions was started. [facility] team arrived shortly with ER doctor, pt intubated and transferred to ICU as per ER doctor's orders.
[2022-02-18] MEDS ORDERED: NOREPINEPHRINE 4 MG/4 ML VIAL IV ONE ×2 (05:43→23:26)
[2022-02-18 06:46] LABS: BASOPHILS % (AUTO) 0.2 % (0.0-2.0); HEMATOCRIT 23.5 % (36-54); HEMOGLOBIN 8.1 g/dL (14.0-18.0); LYMPHOCYTES # (AUTO) 0.2 K/uL (1.0-5.5); LYMPHOCYTES % (AUTO) 1.7 % (20.5-51.5); MEAN CORPUSCULAR HEMOGLOBIN 31 pg (27-31); MEAN CORPUSCULAR HGB CONC 35 % (32-36); MEAN CORPUSCULAR VOLUME 88 fL (79.0-98.0); MONOCYTES # (AUTO) 0.6 K/uL (0.0-1.0); MONOCYTES % (AUTO) 4.7 % (1.7-9.3); NEUTROPHILS # (AUTO) 12.3 K/uL (1.8-7.7); NEUTROPHILS % (AUTO) 93.4 % (40.0-70.0); PLATELET COUNT (AUTO) 129 K/uL (130-430); RED BLOOD CELL COUNT(AUTO) 2.66 MIL/uL (4.2-6.2); RED CELL DISTRIBUTION WIDTH 14.4 % (9.0-15.0); WHITE BLOOD COUNT (AUTO) 13.1 K/uL (4.8-10.8)
[2022-02-18] MEDS: NOREPINEPHRINE BITARTRATE 4 MG in NS 246 ML IV PRN (06:51)
[2022-02-18 06:53] LABS: ANION GAP 11 (5-15); CALCIUM 8.4 mg/dL (8.4-11.0); CREATININE 1.18 mg/dL (0.55-1.30); GLUCOSE 145 mg/dL (70-99); POTASSIUM 3.4 mmol/L (3.5-5.1); SODIUM SERUM 126 mmol/L (136-145); UREA NITROGEN, BLOOD 30 mg/dL (8-21)
[2022-02-18] MEDS: NACL 0.9% 1,000 ML IV SCH ×3 (06:54→18:55)
[2022-02-18 06:58] LABS: ALANINE AMINOTRANSFERASE 29 U/L (12-78); ALBUMIN 2.4 g/dL (3.4-4.8); ASPARTATE AMINOTRANSFERASE 77 U/L (10-37); TOTAL BILIRUBIN 2.1 mg/dL (0.0-1.0)
--- NOTE | 2022-02-18 07:01 | NUR ---
HOLD PHYSICAL THERAPY DUE TO PATIENT'S CHANGE IN CONDITION AND TRANSFER TO THE ICU. PLAN: AWAIT ORDERS WHEN APPROPRIATE.
[2022-02-18] MEDS: PROPOFOL DRIP 100 ML IV PRN ×2 (07:04→10:23)
[2022-02-18 07:34] LABS: CHLORIDE 85 mmol/L (98-107)
[2022-02-18] MEDS ORDERED: NS 500 ML IV ONE (07:45)
[2022-02-18] MEDS: ALBUTEROL SULFATE 0.083% 2.5 MG/3 ML VIAL.NEB INH SCH ×3 (08:29→21:03)
--- NOTE | 2022-02-18 08:50 | NUR ---
RT NOTE: 0850 Decreased FiO2 to 50%. Patient tolerating change well. SpO2 is at 100%. Will continue to titrate as tolerated. Addendum: 02/18/22 at 0931 by Krista Arana RT Amended: Links added.
[2022-02-18] MEDS ORDERED: POTASSIUM CHLORIDE 20 MEQ/PKT PACKET NG ONE (09:15)
[2022-02-18] MEDS: CARBIDOPA/LEVODOPA 25/100 MG TABLET PO SCH ×3 (10:18→21:43)
[2022-02-18] MEDS: ENOXAPARIN SODIUM 40 MG/0.4 ML SYRINGE SUBCUT SCH (10:18)
[2022-02-18] MEDS: ATORVASTATIN 20 MG TABLET PO SCH (10:18)
--- NOTE | 2022-02-18 10:30 | NUR ---
Called Dr. Terry with a consult spoke with Helio from the exchange. Dr Pa manager compensation today
--- NOTE | 2022-02-18 12:36 | NUR ---
Nutrition F/U Admitting Diagnosis Atrial fibrillation, syncope Reviewed Pertinent Medical/Surgical Hx Medical Record Medical History Comment: hyperlipidemia, BPH, HTN, CAD, A. Fib, CHF, DM, Parkinsons dz, s/p CABG SARS-CoV-2 Ag (Rapid) Negative 02/14 Subjective Information Nutrition consult received 02/18/22 1010: tube feeding recommendations RD attended ICU rounds this AM. Per RN report, pt coded this AM and was orally intubated, plan for NGT placemen for medications. Per physician notes, pt has rectal bleeding. Per EMR review, Negrito score 14 L. and R. coccyx wound, ecchymosis to L. hand, L. arm and R. arm. Pt on vent, Ve: 10.3, Tmax: 99F. Current Diet Order/Nutrition Support Cardiac x 4 days Patient/Significant Other Able To Verbalize Education Provided Not Indicated Pertinent Medications Lipitor, piperacillin/tazobactam, Lovenox, Propofol at 2.313 ml/hr (61 kcals/day), Zofran Pertinent Labs WBC 13.1 H, H/H 8.1 L/23.5 L, Na 126 L, BUN 30 H, BG 145 H, AST 77 H, Troponin 100 H, Alb 2.4 L Height (Feet) 5 feet Height (Inches) 8.00 inches Weight (Pounds) 170 pounds Weight (Calculated Kilograms) 77.816189 kilograms Patient Weight 77.111 kg Body Mass Index 25.85 kg/m2 %IBW 110 [place]/Adjusted Body Weight 154#/70 kg Recent Weight Change -# per protective signal installer helper Weight Status Appropriate Usual Diet At Home Regular Skin Integrity Comment: Negrito score 14, skins tears to R. arm and denuded L. and R. buttocks noted Current % PO Fair (50-74%) *NEW Estimated Energy Expenditure (kcals/day) 1738 (PSU d/t critical illness, intubation; Ve: 10.3, Tmax: 37.2'C) * NEW Estimated Protein Required (g/day) 92-115 g/day (1.2-1.5 g/kg CBW d/t wound healing) Estimated Fluid Required (l/day) Per MD Problem/Etiology/Signs/Symptoms Significant weight loss r/t unknown etiology AEB -# wt loss WIRELINE OPERATOR. (*Ongoing) Inadequate oral intake r/t orally intubated AEB no diet order for nutrition support. Expected Outcomes/Goals Monitor tolerance of nutrition support w/ goal of pt meeting greater than 80% of estimated needs, labs trending WNL, normal GI function, skin integrity, wt maintenance. Dietitian Recommendations * Initiate nutrition support when medically appropriate * Vital AF at 60 ml/hr (goal rate), FWF per MD * Provides: 1728 kcals/day, 108 g protein/day * Meetin% of estimated caloric needs and 94% of upper end of estimated protein needs Follow Up High Risk: F/U in 2-3 days
--- NOTE | 2022-02-18 12:37 | NUR ---
Dietitian Recommendation * Initiate nutrition support when medically appropriate * Vital AF at 60 ml/hr (goal rate), FWF per MD * Provides: 1728 kcals/day, 108 g protein/day * Meetin% of estimated caloric needs and 94% of upper end of estimated protein needs Please refer to Nutrition F/U for details.
[2022-02-18 14:32] LABS: INR 1.4 (0.80-1.20); PROTHROMBIN TIME 14.1 SECS (9.5-12.5)
[2022-02-18] MEDS ORDERED: FUROSEMIDE 20 MG/2 ML VIAL IVP ONE (15:15)
[2022-02-18] MEDS ORDERED: ALBUMIN HUMAN 5% 500 ML IV ONE (15:30)
[2022-02-18] MEDS: PIPERACILLIN/TAZO 3.375/DEX-IS 50 ML IV SCH ×2 (15:37→18:21)
[2022-02-18] MEDS: TAMSULOSIN HCL 0.4 MG CAP PO SCH (18:00)
[2022-02-19] VITALS (29 sets, daily range): BP systolic 63–116
[2022-02-19] MEDS ORDERED: dilTIAZem HCL IVP 5 MG/ML VIAL ONE (00:09)
[2022-02-19] MEDS ORDERED: dilTIAZem HCL IVP 5 MG/ML VIAL IVP ONE (00:15)
[2022-02-19] MEDS: PIPERACILLIN/TAZO 3.375/DEX-IS 50 ML IV SCH ×4 (00:20→18:00)
[2022-02-19] MEDS: ALBUTEROL SULFATE 0.083% 2.5 MG/3 ML VIAL.NEB INH SCH ×3 (02:25→13:07)
[2022-02-19] MEDS ORDERED: NOREPINEPHRINE 4 MG/4 ML VIAL IV ONE ×2 (05:15→08:11)
[2022-02-19] MEDS: NACL 0.9% 1,000 ML IV SCH (05:47)
[2022-02-19] MEDS: NOREPINEPHRINE BITARTRATE 4 MG in NS 246 ML IV PRN ×2 (05:49→08:21)
[2022-02-19 06:40] LABS: BASOPHILS % (AUTO) 0.1 % (0.0-2.0); EOSINOPHILS % (AUTO) 0.1 % (0.0-4.0); LYMPHOCYTES # (AUTO) 0.5 K/uL (1.0-5.5); LYMPHOCYTES % (AUTO) 6.3 % (20.5-51.5); MEAN CORPUSCULAR HEMOGLOBIN 31 pg (27-31); MEAN CORPUSCULAR HGB CONC 35 % (32-36); MEAN CORPUSCULAR VOLUME 88 fL (79.0-98.0); MONOCYTES # (AUTO) 0.4 K/uL (0.0-1.0); MONOCYTES % (AUTO) 5.6 % (1.7-9.3); NEUTROPHILS # (AUTO) 6.7 K/uL (1.8-7.7); NEUTROPHILS % (AUTO) 87.9 % (40.0-70.0); PLATELET COUNT (AUTO) 130 K/uL (130-430); RED BLOOD CELL COUNT(AUTO) 2.62 MIL/uL (4.2-6.2); RED CELL DISTRIBUTION WIDTH 15.3 % (9.0-15.0); WHITE BLOOD COUNT (AUTO) 7.7 K/uL (4.8-10.8)
[2022-02-19 06:52] LABS: ALANINE AMINOTRANSFERASE 16 U/L (12-78); ALBUMIN 2.1 g/dL (3.4-4.8); ANION GAP 9 (5-15); ASPARTATE AMINOTRANSFERASE 65 U/L (10-37); CALCIUM 7.6 mg/dL (8.4-11.0); CHLORIDE 95 mmol/L (98-107); CREATININE 1.29 mg/dL (0.55-1.30); GLUCOSE 96 mg/dL (70-99); POTASSIUM 3.1 mmol/L (3.5-5.1); SODIUM SERUM 130 mmol/L (136-145); TOTAL BILIRUBIN 2.3 mg/dL (0.0-1.0); UREA NITROGEN, BLOOD 35 mg/dL (8-21)
[2022-02-19] MEDS ORDERED: CARVEDILOL 6.25 MG TABLET (COREG) PO SCH (09:00)
[2022-02-19] MEDS: ATORVASTATIN 20 MG TABLET PO SCH (10:34)
[2022-02-19] MEDS: ENOXAPARIN SODIUM 40 MG/0.4 ML SYRINGE SUBCUT SCH (10:34)
[2022-02-19] MEDS: CARBIDOPA/LEVODOPA 25/100 MG TABLET PO SCH ×2 (10:34→16:16)
--- NOTE | 2022-02-19 12:00 | NUR ---
RT NOTE: 1200 Increased FiO2 to 70% due to SpO2 at 90%. SpO2 improved between 93-95% post FiO2 change. Will continue to monitor pt. RN made aware.
[2022-02-19] MEDS ORDERED: NOREPINEPHRINE BITARTRATE 16 MG in NS 246 ML IV PRN (12:30)
[2022-02-19] MEDS ORDERED: NACL 0.9% 1,000 ML IV SCH (12:45)
[2022-02-19] MEDS ORDERED: NS 500 ML IV ONE (12:45)
[2022-02-19] MEDS ORDERED: PHENYLEPHRINE HCL 50 MG in NS 245 ML IV PRN (12:45)
--- NOTE | 2022-02-19 13:05 | NUR ---
RT NOTE: 1305 Changes carried out per Dr Pa's order. Rate adjusted from 20 to 16 breaths per minute and Vt 500 to 450. Patient is tolerating well. RN at bedside aware of changes. Will continue to monitor. Addendum: 02/19/22 at 1320 by Krista Arana RT Amended: Links added.
--- NOTE | 2022-02-19 15:40 | NUR ---
Wound Evaluation Attempted: Wound Evaluation attempted but held by TRENTON Chan, secondary to hemodynamic instability of patient.
--- NOTE | 2022-02-19 16:15 | NUR ---
Spoke with and she has informed us that she would like to make the patient a DNR on comfort measures and remove the ET tube. We have paged Ivan (covering for Megan) in order to talk to the family about signing a DNR order.
[2022-02-19] MEDS ORDERED: VANCOMYCIN HCL 1,250 MG in NS 250 ML IV SCH (17:00)
--- NOTE | 2022-02-19 17:55 | NUR ---
Dr. oLve spoke with family and they have confirmed that they would liek to make the patient a DNR and placed on comfort measures (morphine drip). 2 RN verification with Md on the phone. received orders to start morphine drip and discontinue all other medications.
[2022-02-19] MEDS: TAMSULOSIN HCL 0.4 MG CAP PO SCH (18:00)
[2022-02-19] MEDS ORDERED: MORPHINE SULFATE IN 0.9 % NACL 100 ML IV PRN (18:15)
[2022-02-19] MEDS ORDERED: NALOXONE HCL 0.4 MG/ML AMP (NARCAN) IVP PRN (18:15)
--- NOTE | 2022-02-19 19:10 | NUR ---
Assumed pt care report received from Dustin CHOWDHURY, pt's at the bedside plan for the shift to terminally extubates pt as per family request as at this time pt unresponsive, ETT to ventilator, ongoing Morphine drip @2mg/hr awaiting another family before proceeding to extubates.
--- NOTE | 2022-02-19 19:28 | NUR ---
pt terminally extubated no sign of agitation Morphine increased to 4mg, attempted to call for farm reporter but none available family still at the bedside ongoing emotional support.
--- NOTE | 2022-02-19 19:58 | NUR ---
admitting notified notfied admitting of pt @1947
--- NOTE | 2022-02-19 20:00 | NUR ---
dr johnson notified doctor Lida that pt at 1947 consults notifed exchange for notification that pt [place] Pennington Sandhu Addendum: 02/19/22 at 2145 by Zita Urias CNA as well as dr Moya
--- NOTE | 2022-02-19 20:00 | NUR ---
PT at 1948 pronounced by two RNS DAQUAN and GEORGINA as at this time no signs of life, no eyes movement, no breathing, no heart rate nor heart beat on auscultation, no palpable pulses, no movement in all extremities. Family also at the bedside. Family notified [facility] to picket labor union the body from the hospital.
--- NOTE | 2022-02-19 20:30 | NUR ---
[phone] they said they will call us back with ETA of poultry picking machine tender of remains
--- NOTE | 2022-02-19 21:02 | NUR ---
RT FAMILY AT BEDSIDE CONFIRMED THEY WANTED TO TERMINALLY EXTUBATE WITH COMFORT MEASURES. EXTUBATION TOOK PLACE @ 1728. TRENTON BUTT AT BEDSIDE. SUCTIONED DOWN ET TUBE AND MOUTH DEFLATED CUFF THEN PULLED THE TUBE. EXTUBATION WENT WITH NO INCIDENT. PLACED PT ON 3L NC AFTER EXTUBATION.
--- NOTE | 2022-02-19 21:30 | NUR ---
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 All doctors notified of pt's .
--- NOTE | 2022-02-19 22:40 | NUR ---
Post mortem care done and pt picked up by mortuary from [facility]
== END 2022-02-19 19:48 | DRG 640 ==
LOC: SED 09:40 → STU 12:14 → SIC 02-18 05:09
PROVIDERS: ADMIT Internal Medicine Hospice and Palliative Medicine; ATTEND Internal Medicine Hospice and Palliative Medicine
PROC: 5A1945Z Respiratory Ventilation, 24-96 Consecutive Hours (ICD-10-PCS; principal; 2022-02-18)
PROC: 0BH17EZ Insertion of Endotracheal Airway into Trachea, Via Natural or Artificial Opening (ICD-10-PCS; 2022-02-18)
PROC: 5A12012 Performance of Cardiac Output, Single, Manual (ICD-10-PCS; 2022-02-18)
PROC: 02HV33Z Insertion of Infusion Device into Superior Vena Cava, Percutaneous Approach (ICD-10-PCS; 2022-02-18)
PROC: B548ZZA Ultrasonography of Superior Vena Cava, Guidance (ICD-10-PCS; 2022-02-18)
DX: E87.1 Hypo-osmolality and hyponatremia (principal); G93.41 Metabolic encephalopathy; K62.5 Hemorrhage of anus and rectum; I48.20 Chronic atrial fibrillation, unspecified; E44.0 Moderate protein-calorie malnutrition; I42.0 Dilated cardiomyopathy; I50.32 Chronic diastolic (congestive) heart failure; E87.6 Hypokalemia; E83.52 Hypercalcemia; E88.09 Other disorders of plasma-protein metabolism, not elsewhere classified; D69.6 Thrombocytopenia, unspecified; D64.9 Anemia, unspecified; G20 Parkinson's disease; I25.10 Atherosclerotic heart disease of native coronary artery without angina pectoris; N40.0 Benign prostatic hyperplasia without lower urinary tract symptoms; E78.5 Hyperlipidemia, unspecified; E11.65 Type 2 diabetes mellitus with hyperglycemia; E80.6 Other disorders of bilirubin metabolism; F02.80 Dementia in other diseases classified elsewhere, unspecified severity, without behavioral disturbance, psychotic disturbance, mood disturbance, and anxiety; Z20.822 Contact with and (suspected) exposure to COVID-19; I11.0 Hypertensive heart disease with heart failure; F10.10 Alcohol abuse, uncomplicated; Y90.9 Presence of alcohol in blood, level not specified; Z68.25 Body mass index [BMI] 25.0-25.9, adult; Z95.1 Presence of aortocoronary bypass graft; Z87.891 Personal history of nicotine dependence; I46.9 Cardiac arrest, cause unspecified; L89.302 Pressure ulcer of unspecified buttock, stage 2
CPT/HCPCS: 36415; 36600; 70450-TC; 71045; 76376; 80048; 80053; 81003; 82533; 82803-TC; 82962; 83605; 83735; 83880; 83930; 83935; 84100; 84443; 84484; 85025; 85379; 85610-TC; 85730-TC; 87040; 87186-TC; 92950; 93005; 93306; 93971; 94640; 94760; 97116-GP; 97530-GP; 99291; G0378; G0482; J1650; J1940; J2270; J2370; J2543; J2704; J3370; J3480; J3490; J7030; J7050; J7060; J7613; P9041